=== PATIENT | female | born 2000 | race Two or more races ===

== ENCOUNTER → 2024-12-05 | Emergency (ER) | payer OTHER ==
[~2024-12-05] VITALS: Ht 157.5 cm; Wt 47.6 kg
[~2024-12-05] MED LIST: EFFEXOR XR75 MG
[2024-12-05 14:51] VITALS: BP 111/74; O2SAT 99
== END | disposition left against medical advice (07) ==
LOC: ER 14:47
DX: Z53.21 Procedure and treatment not carried out due to patient leaving prior to being seen by health care provider (principal)